=== PATIENT | female | born 1950 | race African-American/Black ===

== ENCOUNTER 2024-11-18 08:11 | Inpatient (IN) | payer OTHER ==
[~2024-11-18] VITALS: Ht 167.6 cm; Wt 71.7 kg
[2024-11-18 09:11] LABS: CHLORIDE 104 mEq/L (98-107); POTASSIUM 3.3 mEq/L (3.5-5.1); SODIUM 137 mEq/L (136-145)
[2024-11-18 09:12] LABS: CARBON DIOXIDE 25 mEq/L (21-32)
[2024-11-18 09:17] LABS: BASOPHILS % 0.6 % (0.0-2.0); CREATININE 1.4 mg/dL (0.6-1.0); EOSINOPHILS % 1.5 % (0.0-5.0); GLUCOSE 54 mg/dL (70-105); HEMATOCRIT. 33.6 % (36.0-48.0); HEMOGLOBIN. 10.8 g/dL (12.0-16.0); LYMPHOCYTES % 32.7 % (20.0-50.0); MEAN CORPUSCULAR HEMOGLOBIN 30.7 pg (28.0-32.0); MEAN CORPUSCULAR HGB CONC 32.1 g/dL (31.0-37.0); MEAN CORPUSCULAR VOLUME 95.6 fL (81.0-99.0); MEAN PLATELET VOLUME 8.8 fl (7.4-10.4); MONOCYTES % 7.4 % (2.0-8.0); NEUTROPHILS % 57.8 % (40.0-76.0); PLATELET 118 x1000/uL (130-400); RED BLOOD CELL COUNT 3.51 mill/uL (4.2-5.4); RED CELL DISTRIBUTION WIDTH 15.4 % (11.6-14.6); WHITE BLOOD COUNT 5.9 x1000/uL (4.5-11.0)
[2024-11-18 09:18] LABS: UREA NITROGEN BLOOD 27 mg/dL (9-23)
[2024-11-18 09:19] LABS: ALANINE AMINOTRANSFERASE 24 IU/L (10-49); ALBUMIN 3.7 g/dL (3.2-4.8); ASPARTATE AMINOTRANSFERASE 65 IU/L (<34)
[2024-11-18 09:20] LABS: BILIRUBIN DIRECT 0.2 mg/dL (<=3.0); BILIRUBIN TOTAL 0.4 mg/dL (0.1-1.0); PROTEIN TOTAL 6.4 g/dL (6.0-8.3)
[2024-11-18 09:30] LABS: TROPONIN I HIGH SENSITIVITY 93 ng/L (3.0-34)
[2024-11-18 11:00] LABS: CLARITY URINE CLOUDY (CLEAR); COLOR URINE YELLOW (YELLOW); GLUCOSE URINE NEGATIVE (NEGATIVE); KETONES URINE 1+ (NEGATIVE); LEUKOCYTE ESTERASE URINE TRACE (NEGATIVE); NITRITE URINE NEGATIVE (NEGATIVE); OCCULT BLOOD URINE 3+ (NEGATIVE); PH URINE 5.5 (4.5-8.0); PROTEIN URINE TRACE (NEGATIVE); SPECIFIC GRAVITY URINE 1.015 (1.005-1.030); UROBILINOGEN URINE 0.2 E.U./dL (0.2-1.0)
[2024-11-18 11:31] LABS: CREATINE KINASE 418 IU/L (34-145)
[2024-11-18 11:43] LABS: BACTERIA URINE 2+; SQUAMOUS EPITHELIAL CELL URINE 2+ /lpf (RARE/1+); YEAST URINE NONE SEEN
[2024-11-18] MEDS: CEFTRIAXONE 1GM/50ML 50 ML IV ONE (12:48)
[2024-11-18] MEDS: ASPIRIN 81MG TABLET PO ONE (12:48)
[2024-11-18] MEDS: ONDANSETRON HCL 4MG/2ML INJ IV STA (12:49)
[2024-11-18] MEDS: MORPHINE SULFATE 4 MG/ML INJ (FOR IV/IM USE) IV STA (12:49)
[2024-11-18] MEDS: SODIUM CHLORIDE 0.9% 1,000 ML IV ONE (12:49)
[2024-11-18 13:15] LABS: PROTHROMBIN TIME 10.7 sec (9.6-11.0)
[2024-11-18 14:41] LABS: TROPONIN I HIGH SENSITIVITY 84 ng/L (3.0-34)
[2024-11-18 19:30] VITALS: BP 119/75; PULSE 85; RESP 18; TEMP 36.5848
[2024-11-19] MEDS ORDERED: CLONIDINE 0.1MG TABLET PO PRN (00:45)
[2024-11-19] MEDS ORDERED: POTASSIUM CHLORIDE 40 MEQ in DEXT 5% WATER 230 ML IV ONE (00:45)
[2024-11-19] MEDS ORDERED: DOCUSATE SODIUM 100MG CAPSULE PO PRN (00:45)
[2024-11-19] MEDS ORDERED: GUAIFENESIN 200MG/10ML SUGAR FREE UDC PO PRN (00:45)
[2024-11-19] MEDS ORDERED: DEXTROSE 50% WATER 50ML SYRINGE IV PRN (00:45)
[2024-11-19] MEDS ORDERED: ACETAMINOPHEN 325MG TABLET PO PRN (00:45)
[2024-11-19] MEDS ORDERED: ONDANSETRON HCL 4MG/2ML INJ IV PRN (00:45)
[2024-11-19] MEDS ORDERED: MAGNESIUM/ALUMINUM HYDROXIDE/SIMETHICONE 30ML UDC PO PRN (00:45)
[2024-11-19] MEDS ORDERED: IPRATROPIUM/ALBUTEROL 0.5-3(2.5)MG/3ML NEB HHN PRN (00:45)
[2024-11-19] MEDS: DEXT 5%/0.9% NACL 1,000 ML IV SCH (02:22)
[2024-11-19] MEDS: PANTOPRAZOLE SODIUM 40 MG/VIAL IV SCH (02:27)
[2024-11-19] MEDS: KCL 20MEQ/100ML X 2 FOR TOTAL KCL 40MEQ/200ML IV SCH (03:47)
[2024-11-19] MEDS ORDERED: HYDR-4379 PO (03:48)
[2024-11-19] MEDS ORDERED: LEVO50TA8 PO (03:48)
[2024-11-19] MEDS ORDERED: ATOR10TA69 PO (03:48)
[2024-11-19 04:00] VITALS: BP 98/57; PULSE 84; RESP 18; TEMP 36.55848; O2SAT 95
[2024-11-19 07:41] LABS: CHLORIDE 106 mEq/L (98-107); POTASSIUM 3.6 mEq/L (3.5-5.1); SODIUM 138 mEq/L (136-145)
[2024-11-19 07:42] LABS: CALCIUM 8.2 mg/dL (8.7-10.4); CARBON DIOXIDE 25 mEq/L (21-32)
[2024-11-19 07:47] LABS: CREATININE 0.9 mg/dL (0.6-1.0); GLUCOSE 59 mg/dL (70-105); IRON 46 ug/dL (50-170); UREA NITROGEN BLOOD 12 mg/dL (9-23)
[2024-11-19 07:49] LABS: CREATINE KINASE 385 IU/L (34-145); PHOSPHORUS 1.7 mg/dL (2.5-4.9)
[2024-11-19 07:50] LABS: T4 FREE 0.66 ng/dL (0.89-1.76); THYROID STIMULATING HORMONE 1.38 uIU/mL (0.55-4.78); TOTAL IRON BINDING CAPACITY 252 ug/dl (250-425)
[2024-11-19 07:52] LABS: FERRITIN 705 ng/mL (10-291); FOLIC ACID (FOLATE) SERUM 7.84 ng/mL (>5.38)
[2024-11-19 07:53] LABS: VITAMIN B12 SERUM 517 pg/mL (211-911)
[2024-11-19 08:00] VITALS: BP 100/57; PULSE 88; RESP 19; TEMP 36.6696; O2SAT 98
[2024-11-19] MEDS: BLOOD SUGAR DIAGNOSTIC STRIP TEST SCH (08:00)
[2024-11-19] MEDS: HYDROCORTISONE SOD SUCCINATE 100 MG/2 ML VIAL IV NR (08:17)
[2024-11-19] MEDS: ENOXAPARIN 30MG/0.3ML SYR SUBCUT SCH (08:18)
[2024-11-19 12:00] VITALS: BP 111/62; PULSE 76; RESP 18; TEMP 36.3918; O2SAT 100
[2024-11-19] MEDS: POTASSIUM PHOSPHATE 15 MMOL in DEXT 5% WATER 245 ML IV NR (14:08)
[2024-11-19] MEDS: FERROUS SULFATE 325MG TABLET PO SCH (14:09)
[2024-11-19 15:35] LABS: TROPONIN I HIGH SENSITIVITY 53 ng/L (3.0-34)
[2024-11-19 16:00] VITALS: BP 107/68; PULSE 66; RESP 19; TEMP 36.3918; O2SAT 97
[2024-11-19 16:17] LABS: CREATINE KINASE 383 IU/L (34-145); TROPONIN I HIGH SENSITIVITY 31 ng/L (3.0-34)
[2024-11-19 19:39] VITALS: BP 107/68; PULSE 66; TEMP 97.5; O2SAT 97
[2024-11-19 20:00] VITALS: BP 113/64; PULSE 67; RESP 18; TEMP 36.3918; TEMP 36.39180; O2SAT 97
[2024-11-19] MEDS ORDERED: HYDROCORTISONE SOD SUCCINATE 100 MG/2 ML VIAL IV SCH (22:00)
== END 2024-11-19 20:55 | disposition short-term general hospital (02) | DRG 643 ==
LOC: ER 08:11 → CANBEDREQ 12:22 → 7WST 20:10
PROVIDERS: ADMIT Internal Medicine; ATTEND Internal Medicine
DX: E27.2 Addisonian crisis (principal); I21.A1 Myocardial infarction type 2; N17.9 Acute kidney failure, unspecified; M62.82 Rhabdomyolysis; E27.49 Other adrenocortical insufficiency; I95.9 Hypotension, unspecified; E16.2 Hypoglycemia, unspecified; E87.6 Hypokalemia; Z20.822 Contact with and (suspected) exposure to COVID-19; E86.0 Dehydration; N18.9 Chronic kidney disease, unspecified; E78.5 Hyperlipidemia, unspecified; F17.210 Nicotine dependence, cigarettes, uncomplicated
CPT/HCPCS: 36415; 71045; 80048; 80076; 81003; 82533; 82550; 82607; 82728; 82746; 82962; 83036; 83540; 83550; 83605; 83735; 84100; 84439; 84443; 84484; 85025; 87426; 87804; 93005; 99291; C1893; J0696; J1650; J1720; J2270; J2405; J2470; J3480; J3490; J7030; J7042; J7060